=== PATIENT | female | born 1980 | race Caucasian/White ===

== ENCOUNTER 2018-09-27 12:55 | Emergency (ER) | payer OTHER ==
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
[2018-09-27 13:16] VITALS: TEMP 100.8; O2SAT 97
--- NOTE | 2018-09-27 13:43 | RAD ---
EXAM DESCRIPTION: Shoulder,Right 2 or More Views CLINICAL HISTORY: injury COMPARISON: None Available. TECHNIQUE: Two views of the right shoulder. FINDINGS: There is good internal and external rotation. There is no fracture or bone lesion. There are no significant degenerative changes observed. IMPRESSION: 1. Normal shoulder. Electronically signed by: Billy Bal MD 09/27/2018 1:42 PM [facility]
[2018-09-27 14:01] VITALS: BP 183/91
== END 2018-09-27 13:52 | disposition home or self-care (01) ==
LOC: ER 12:55
DX: S40.011A Contusion of right shoulder, initial encounter (principal); I10 Essential (primary) hypertension; F32.9 Major depressive disorder, single episode, unspecified; Z87.891 Personal history of nicotine dependence; Z88.2 Allergy status to sulfonamides; Z88.0 Allergy status to penicillin; Z79.899 Other long term (current) drug therapy; V48.3XXA Unspecified car occupant injured in noncollision transport accident in nontraffic accident, initial encounter; Y92.410 Unspecified street and highway as the place of occurrence of the external cause

== ENCOUNTER 2018-09-30 09:34 | Emergency (ER) | payer OTHER ==
[2018-09-30] MEDS ORDERED: ONDANSETRON INJ 4 MG/2 ML VIAL IV ONE (09:50)
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
[2018-09-30 10:10] VITALS: TEMP 98.8
[2018-09-30] MEDS ORDERED: HYDROcodone 7.5MG/APAP 325MG 1 EA TAB PO ONE (10:22)
[2018-09-30] MEDS ORDERED: CYCLOBENZAPRINE HCL 10 MG TAB PO ONE (10:23)
[2018-09-30] MEDS ORDERED: PROMETHAZINE HCL INJ 25 MG in SODIUM CHLORIDE 0.9% 50ML 50 ML IVPB ONE (11:10)
[2018-09-30] MEDS ORDERED: PROMETHAZINE HCL INJ 25 MG/ML VIAL ONE (11:11)
[2018-09-30] MEDS ORDERED: SODIUM CHLORIDE 0.9% 50ML 50 ML ONE (11:11)
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
[2018-09-30 12:56] VITALS: BP 146/88; O2SAT 98
== END 2018-09-30 12:50 | disposition home or self-care (01) ==
LOC: ER 09:34
DX: S06.0X0A Concussion without loss of consciousness, initial encounter (principal); M54.2 Cervicalgia; I10 Essential (primary) hypertension; F32.9 Major depressive disorder, single episode, unspecified; Y92.69 Other specified industrial and construction area as the place of occurrence of the external cause; Y99.0 Civilian activity done for income or pay; Z87.891 Personal history of nicotine dependence; V49.69XA Unspecified car occupant injured in collision with other motor vehicles in traffic accident, initial encounter; Z79.899 Other long term (current) drug therapy; Z88.0 Allergy status to penicillin; Z88.2 Allergy status to sulfonamides
CPT/HCPCS: 36415; 70450; 72125; 80053; 81001; 81025; 85025; 85610; 85730; A4216; J2405; J2550

== ENCOUNTER → 2018-10-24 | Outpatient (CLI) | payer BC | LOC: LAB.O 11:25 | PROVIDERS: ATTEND Family Medicine | DX: I10 Essential (primary) hypertension (principal); R63.5 Abnormal weight gain; F17.200 Nicotine dependence, unspecified, uncomplicated ==

== ENCOUNTER 2019-04-16 12:33 | Emergency (ER) | payer BC ==
[2019-04-16] MEDS ORDERED: PROMETHAZINE HCL INJ 25 MG in SODIUM CHLORIDE 0.9% 50ML 50 ML IVPB ONE (12:39)
[2019-04-16] MEDS ORDERED: SUCRALFATE 1 GM/10 ML 1 GM UD PO ONE ×2 (12:39→14:57)
[2019-04-16] MEDS ORDERED: ALUM & MAG HYDROX-SIMETHICONE 30 ML, LIDOCAINE VISCOUS 2% 15 ML PO ONE ×4 (12:39→14:57)
[2019-04-16] MEDS ORDERED: SODIUM CHLORIDE 0.9% 1000ML 1,000 ML IVS ONE (12:39)
[2019-04-16] MEDS ORDERED: ALUM & MAG HYDROX-SIMETHICONE 30 ML UD ONE ×2 (12:40→15:15)
[2019-04-16] MEDS ORDERED: LIDOCAINE HCL 2% (MOUTH-THROAT) 15 ML UD ONE ×2 (12:40→15:15)
[2019-04-16] MEDS ORDERED: PROMETHAZINE HCL INJ 25 MG/ML VIAL ONE (12:41)
[2019-04-16] MEDS ORDERED: SODIUM CHLORIDE 0.9% 50ML 50 ML ONE (12:41)
--- NOTE | 2019-04-16 13:30 | RAD ---
1 radiograph chest. 1 Radiographs of the Abdomen. Indication: epigastric and ruq pain with nv today Comparison: None. Impression: Heart size normal. Lungs clear. No free air. Mild constipation without findings of obstruction. No abnormal calcifications. No acute osseous abnormality. Electronically signed by: Carlos Garcia MD 04/16/2019 1:28 PM CDT
[2019-04-16] MEDS ORDERED: HYDROmorphone HCL INJ 2 MG/ML VIAL IV ONE (13:49)
[2019-04-16] MEDS ORDERED: PANTOPRAZOLE SODIUM IV 40 MG VIAL IV ONE (13:49)
--- NOTE | 2019-04-16 15:15 | US ---
EXAM DESCRIPTION: Abdomen,Limited: ULTRASOUND. CLINICAL HISTORY: NV. RUQ discomfort COMPARISON: None. TECHNIQUE: Transabdominal scanning: bailey-scale and Doppler modes. FINDINGS: Gallbladder: normal size, shape, echogenicity; no intraluminal stones or sludge. No fluid around the gallbladder. No wall thickening. 2.4 mm. Non-tender with transducer pressure. Common bile duct: caliber 3.6 mm within normal limits. Liver: normal echogenicity; contour liver capsule smooth where seen. No fluid around the liver. Intrahepatic biliary ducts normal caliber. Doppler hepatopedal flow and normal caliber portal vein.. Long axis right lobe 18.8 cm. Pancreas: normal size and echogenicity. Duct not seen. Proximal abdominal aorta: diameter. IVC: visualized and normal caliber. Right kidney: long axis measures 10.5 cm. Normal Echogenicity. Normal cortical thickness. No hydronephrosis, echogenic stones, or perirenal fluid IMPRESSION: Normal ultrasound of the right upper quadrant of the abdomen. Electronically signed by: Niall Rincon MD 04/16/2019 3:13 PM CDT
--- NOTE | 2019-04-16 15:55 | ED.PDOC ---
History of Present Illness - General Chief Complaint: Abdominal Pain Time Seen by Provider: 04/16/19 12:39 Source: patient Exam Limitations: no limitations - History of Present Illness Initial Comments: the patient is a 38-year-old female presenting to the emergency room secondary to abdominal pain with associated nausea and vomiting. She's had a decreased appetite. no fevers. No bile. No blood. No diarrhea or constipation. The patient had 2 doses of Zofran before coming in and was still throwing up. Abdominal pain is primarily epigastric and maybe a little more to the right than Center. No palpable mass. No definite rebound. the patient has a history of gastritis and reflux in the past. No significant weight loss. No recent scopes. She takes Zantac on an as-needed basis. Timing/Duration: 24 hours Severity: moderate Improving Factors: nothing Worsening Factors: eating Associated Symptoms: loss of appetite, malaise, nausea/vomiting Allergies/Adverse Reactions: Allergies Penicillins Allergy (Verified 09/27/18 13:08) Sulfa Antibiotics Allergy (Verified 09/27/18 13:08) Home Medications: Ambulatory Orders Estradiol [Estrace] 0.5 mg PO DAILY 09/27/18 Amphetamine-Dextroamphetamine [Adderall] 1 tab PO DAILY PRN 04/16/19 Fluoxetine HCl 40 mg PO DAILY 04/16/19 Lisinopril [Prinivil] 10 mg PO DAILY 04/16/19 Omeprazole 40 mg PO BID #60 cap 04/16/19 Ondansetron [Ondansetron Odt] 4 mg PO Q8HR PRN #5 tab 04/16/19 Sucralfate Tab [Carafate Tab] 1 gm PO QID #120 tab 04/16/19 Tramadol HCl 50 mg PO Q8HR PRN #20 tab 04/16/19 Review of Systems - Review of Systems Constitutional: States: malaise EENTM: States: no symptoms reported Respiratory: States: no symptoms reported Cardiology: States: no symptoms reported Gastrointestinal/Abdominal: States: abdominal pain, nausea, vomiting. Denies: constipation, diarrhea Genitourinary: States: no symptoms reported Musculoskeletal: States: no symptoms reported Skin: States: no symptoms reported Neurological: States: no symptoms reported Endocrine: States: no symptoms reported All other Systems: No Change from Baseline Past Medical History (General) - Patient Medical History Hx Stroke: No Hx Congestive Heart Failure: No Hx Hypertension: Yes Hx Diabetes: No Surgical History: Hysterectomy - Vaccination History Hx Influenza Vaccination: Yes - Social History Hx Tobacco Use: Yes Hx Depression: Yes Family Medical History - Family History Mother Family History: Unknown Living Status: Unknown Physical Exam - Physical Exam General Appearance: Alert, Comfortable, No apparent distress Eye Exam: bilateral normal Ears, Nose, Throat: hearing grossly normal Neck: full range of motion Respiratory: no respiratory distress, no accessory muscle use Cardiovascular/Chest: normal peripheral pulses, no edema Peripheral Pulses: radial,right: 2+, radial,left: 2+ Gastrointestinal/Abdominal: soft, other - epigastric discomfort to palpation but no rebound or peritoneal signs. No palpable mass. 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, alert, normal mood/affect, oriented x 3 Skin Exam: normal color Comments: Vital Signs - 24 hr 04/16/19 04/16/19 04/16/19 12:40 13:26 14:05 Temperature 97.2 F L Pulse Rate [ 69 69 75 right brachial] Respiratory 22 20 20 Rate Blood Pressure 165/107 150/112 140/103 [right brachial ] O2 Sat by Pulse 98 99 96 Oximetry 04/16/19 15:24 Temperature Pulse Rate [ 67 right brachial] Respiratory 16 Rate Blood Pressure 154/93 [right brachial ] O2 Sat by Pulse 94 L Oximetry Progress - Progress Progress: 04/16/19 15:57 the patient's a 38-year-old female presenting to emergency room secondary to epigastric pain with associated nausea and vomiting. Laboratory work is reassuring. X-ray and right upper quadrant ultrasound are also reassuring. Most likely source for the discomfort and symptoms is gastritis or duodenitis. The patient is going to be placed on Carafate and omeprazole for the next month. She needs to maintain a bland diet. She also needs to pick up operator liquid Maalox or Mylanta to take as needed for symptom flares. She'll be written for Zofran ODT's as well to controll nausea or vomiting. If symptoms fail to improve or worsen then she may require additional workup. If symptoms recur then testing for Helicobacter pylori as an outpatient, for endoscopy may be warranted. ER warnings were given. Keep routine follow-up with primary care doctor. - Results/Orders Results/Orders: acute abdominal series shows no obvious perforation. No obstruction. No obvious lung disease. Right upper quadrant ultrasound shows no acute gallbladder or kidney pathology. Laboratory Results - last 24 hr 04/16/19 04/16/19 04/16/19 12:53 12:53 12:53 WBC 8.1 RBC 4.28 Hgb 12.6 Hct 37.6 MCV 87.8 MCH 29.4 MCHC 33.5 RDW 13.9 Plt Count 275 MPV 7.4 Absolute Neuts (auto) 6.90 H Absolute Lymphs (auto) 0.90 L Absolute Monos (auto) 0.30 Absolute Eos (auto) 0.00 Absolute Basos (auto) 0.10 Neutrophils % 84.4 H Lymphocytes % 11.3 L Monocytes % 3.4 Eosinophils % 0.3 L Basophils % 0.6 Sodium 138 Potassium 3.9 Chloride 106 Carbon Dioxide 22 Anion Gap 13.9 BUN 12 Creatinine 0.69 BUN/Creatinine Ratio 17.4 Random Glucose 108 H Serum Osmolality 276.0 Lactic Acid 0.6 Calcium 8.8 Magnesium 2.2 Total Bilirubin 0.6 AST 21 ALT 24 Alkaline Phosphatase 67 Creatine Kinase 93 CK-MB (CK-2) 1.7 Troponin I < 0.02 Serum Total Protein 7.4 Albumin 4.4 Globulin 3.0 Albumin/Globulin Ratio 1.5 Amylase 79 Lipase 38 Urine HCG, Qual 04/16/19 15:35 WBC RBC Hgb Hct MCV MCH MCHC RDW Plt Count MPV Absolute Neuts (auto) Absolute Lymphs (auto) Absolute Monos (auto) Absolute Eos (auto) Absolute Basos (auto) Neutrophils % Lymphocytes % Monocytes % Eosinophils % Basophils % Sodium Potassium Chloride Carbon Dioxide Anion Gap BUN Creatinine BUN/Creatinine Ratio Random Glucose Serum Osmolality Lactic Acid Calcium Magnesium Total Bilirubin AST ALT Alkaline Phosphatase Creatine Kinase CK-MB (CK-2) Troponin I Serum Total Protein Albumin Globulin Albumin/Globulin Ratio Amylase Lipase Urine HCG, Qual Negative Departure - Departure Clinical Impression: Gastritis Qualifiers: Gastritis type: unspecified gastritis Chronicity: acute Gastritis bleeding: without bleeding Qualified Code(s): K29.00 - Acute gastritis without bleeding Disposition: Discharge to Home or Self Care Condition: Fair Departure Forms: ED Discharge - Pt. Copy, Patient Portal Self Enrollment Instructions: Gastritis (DC) Diet: bland diet Activity: increase activity as tolerated Prescriptions: Ondansetron [Ondansetron Odt] 4 mg PO Q8HR PRN #5 tab PRN Reason: Nausea/Vomiting Tramadol HCl 50 mg PO Q8HR PRN #20 tab PRN Reason: Moderate Pain Omeprazole 40 mg PO BID #60 cap Sucralfate Tab [Carafate Tab] 1 gm PO QID #120 tab Home Medications: Ambulatory Orders Estradiol [Estrace] 0.5 mg PO DAILY 09/27/18 Amphetamine-Dextroamphetamine [Adderall] 1 tab PO DAILY PRN 04/16/19 Fluoxetine HCl 40 mg PO DAILY 04/16/19 Lisinopril [Prinivil] 10 mg PO DAILY 04/16/19 Omeprazole 40 mg PO BID #60 cap 04/16/19 Ondansetron [Ondansetron Odt] 4 mg PO Q8HR PRN #5 tab 04/16/19 Sucralfate Tab [Carafate Tab] 1 gm PO QID #120 tab 04/16/19 Tramadol HCl 50 mg PO Q8HR PRN #20 tab 04/16/19 Additional Instructions: the patient's a 38-year-old female presenting to emergency room secondary to epigastric pain with associated nausea and vomiting. Laboratory work is reassuring. X-ray and right upper quadrant ultrasound are also reassuring. Most likely source for the discomfort and symptoms is gastritis or duodenitis. The patient is going to be placed on Carafate and omeprazole for the next month. She needs to maintain a bland diet. She also needs to pick up operator liquid Maalox or Mylanta to take as needed for symptom flares. She'll be written for Zofran ODT's as well to controll nausea or vomiting. If symptoms fail to improve or worsen then she may require additional workup. If symptoms recur then testing for Helicobacter pylori as an outpatient, for endoscopy may be warranted. ER warnings were given. Keep routine follow-up with primary care doctor.
[2019-04-16 16:38] VITALS: BP 169/106; TEMP 97.4; O2SAT 93
== END 2019-04-16 16:27 | disposition home or self-care (01) ==
LOC: ER 12:33
DX: K29.00 Acute gastritis without bleeding (principal); F32.9 Major depressive disorder, single episode, unspecified; I10 Essential (primary) hypertension; Z87.891 Personal history of nicotine dependence; Z79.899 Other long term (current) drug therapy; Z88.0 Allergy status to penicillin; Z88.2 Allergy status to sulfonamides
CPT/HCPCS: 36415; 74019; 76775; 80053; 81001; 81025; 82150; 82550; 82553; 83605; 83690; 83735; 84484; 85025; 87040; A4216; J1170; J2550; J7030

== ENCOUNTER → 2019-05-28 | Outpatient (CLI) | payer BC | LOC: MAMMO 13:35 | PROVIDERS: ATTEND Family Medicine | DX: Z12.31 Encounter for screening mammogram for malignant neoplasm of breast (principal) ==

== ENCOUNTER → 2019-06-18 | Outpatient (CLI) | payer BC ==
--- NOTE | 2019-06-19 16:28 | MAM ---
EXAM DESCRIPTION: Breast,Bilateral (accession [id number]), 3D Diagnostic, Bilateral (accession [id number]): Ultrasound CLINICAL HISTORY: 38 yearsFemaleABNORMAL MAMMO focal asymmetry bilateral breasts. No personal history of breast cancer. Remote family history of breast cancer. Menarche age 11. Childbirth age 17. Postmenopausal 10 years. Currently on HRT Lifetime risk of developing breast cancer (Tyrer-Cuzick model)(%): 7.3. COMPARISON: Bilateral screening digital breast tomosynthesis 05/28/2019. TECHNIQUE: Bilateral LM projection full-field images, digital mammographic tomosynthesis technique. Bilateral 2-D digital full-field images. CC and LM projections. CAD not available . Transcutaneous scanning of the bilateral breasts. utilizing bailey-scale and Doppler modes. Scanning performed by the mitering machine operator and Dr. Rincon. FINDINGS: The breast parenchymal density pattern is: Scattered areas of fibroglandular density. No skin thickening or nipple retraction bilateral regions of focal asymmetry are less focal on the current study compared to the screening study. Ultrasound: Scanning of the upper-outer quadrant left breast. History of fibroglandular and fatty echotextures. At the 3:00 position 3 cm from the nipple is a hypoechoic to anechoic object with minimal wall thickening. This is associated with fibroglandular tissues. Mostly posterior acoustic enhancement. 6.9 x 6.0 mm, wider than tall, and not vascular. Slightly closer to the nipple is a anechoic structure with thin simmons, posterior acoustic enhancement and wider than tall orientation measuring 4.5 x 3.0 mm and most likely a cyst. No dominant solid mass, large calcifications, or parenchymal edema. No overlying skin changes. Scanning of the lateral right breast. Emphasis on the 9:00 location 7 cm from the nipple. Mixture of fibroglandular and fatty echotextures. No dominant solid mass or distinct cyst. No large calcifications or parenchymal edema. No overlying skin changes. IMPRESSION: Probably benign complicated cyst versus fibroadenoma left breast. BI-RADS CATEGORY: 3 - PROBABLY BENIGN. Management: Short interval (6-month) follow-up diagnostic digital mammography left breast and directed left breast ultrasound. The FINDINGS and the FOLLOW-UP plan were reviewed in person with the patient after the examination. Written communication explaining the IMPRESSION and FOLLOW-UP will be mailed to the patient and referring care provider. Electronically signed by: Niall Rincon MD 06/19/2019 3:31 PM CDT
--- NOTE | 2019-06-19 16:30 | MAM ---
EXAM DESCRIPTION: Breast,Bilateral (accession [id number]), 3D Diagnostic, Bilateral (accession [id number]): Ultrasound CLINICAL HISTORY: 38 yearsFemaleABNORMAL MAMMO focal asymmetry bilateral breasts. No personal history of breast cancer. Remote family history of breast cancer. Menarche age 11. Childbirth age 17. Postmenopausal 10 years. Currently on HRT Lifetime risk of developing breast cancer (Tyrer-Cuzick model)(%): 7.3. COMPARISON: Bilateral screening digital breast tomosynthesis 05/28/2019. TECHNIQUE: Bilateral LM projection full-field images, digital mammographic tomosynthesis technique. Bilateral 2-D digital full-field images. CC and LM projections. CAD not available . Transcutaneous scanning of the bilateral breasts. utilizing bailey-scale and Doppler modes. Scanning performed by the feed house supervisor and Dr. Rincon. FINDINGS: The breast parenchymal density pattern is: Scattered areas of fibroglandular density. No skin thickening or nipple retraction bilateral regions of focal asymmetry are less focal on the current study compared to the screening study. Ultrasound: Scanning of the upper-outer quadrant left breast. History of fibroglandular and fatty echotextures. At the 3:00 position 3 cm from the nipple is a hypoechoic to anechoic object with minimal wall thickening. This is associated with fibroglandular tissues. Mostly posterior acoustic enhancement. 6.9 x 6.0 mm, wider than tall, and not vascular. Slightly closer to the nipple is a anechoic structure with thin simmons, posterior acoustic enhancement and wider than tall orientation measuring 4.5 x 3.0 mm and most likely a cyst. No dominant solid mass, large calcifications, or parenchymal edema. No overlying skin changes. Scanning of the lateral right breast. Emphasis on the 9:00 location 7 cm from the nipple. Mixture of fibroglandular and fatty echotextures. No dominant solid mass or distinct cyst. No large calcifications or parenchymal edema. No overlying skin changes. IMPRESSION: Probably benign complicated cyst versus fibroadenoma left breast. BI-RADS CATEGORY: 3 - PROBABLY BENIGN. Management: Short interval (6-month) follow-up diagnostic digital mammography left breast and directed left breast ultrasound. The FINDINGS and the FOLLOW-UP plan were reviewed in person with the patient after the examination. Written communication explaining the IMPRESSION and FOLLOW-UP will be mailed to the patient and referring care provider. Electronically signed by: Niall Rincon MD 06/19/2019 3:31 PM CDT
== END ==
LOC: US 09:19
PROVIDERS: ATTEND Family Medicine
DX: R92.8 Other abnormal and inconclusive findings on diagnostic imaging of breast (principal)
CPT/HCPCS: 76641; 77066; G0279

== ENCOUNTER 2020-06-07 04:39 | Emergency (ER) | payer BC ==
[2020-06-07] MEDS ORDERED: SODIUM CHLORIDE 0.9% 1000ML 1,000 ML IVS ONE ×2 (04:42→05:41)
[2020-06-07] MEDS ORDERED: ONDANSETRON INJ 4 MG/2 ML VIAL IV ONE (04:43)
[2020-06-07] MEDS ORDERED: METOCLOPRAMIDE HCL INJ 10 MG/2 ML VIAL IV ONE (05:41)
--- NOTE | 2020-06-07 06:12 | ED.PDOC ---
History of Present Illness - General Chief Complaint: General Stated Complaint: nausea, sore throat, right ear pain Time Seen by Provider: 06/07/20 05:07 Source: patient, RN notes reviewed, Vital Signs reviewed Exam Limitations: no limitations - History of Present Illness Initial Comments: Patient is a 39-year-old white female who presents with complaints of sore throat, right ear pain, nausea and continues vomiting over the last 24 hours. Symptoms have progressively worsened. Patient denies any vertigo or dizziness. Nothing seems to make the nausea and vomiting better. It is worse when she tries to eat or drink anything. Timing/Duration: 24 hours Severity: severe Improving Factors: nothing Worsening Factors: eating Associated Symptoms: nausea/vomiting Allergies/Adverse Reactions: Allergies Penicillins Allergy (Verified 09/27/18 13:08) Sulfa Antibiotics Allergy (Verified 09/27/18 13:08) Home Medications: Ambulatory Orders Estradiol [Estrace] 0.5 mg PO DAILY 09/27/18 Amphetamine-Dextroamphetamine [Adderall] 1 tab PO DAILY PRN 04/16/19 Fluoxetine HCl 40 mg PO DAILY 04/16/19 Lisinopril [Prinivil] 10 mg PO DAILY 04/16/19 Omeprazole 40 mg PO BID #60 cap 04/16/19 Ondansetron [Ondansetron Odt] 4 mg PO Q8HR PRN #5 tab 04/16/19 Sucralfate Tab [Carafate Tab] 1 gm PO QID #120 tab 04/16/19 Tramadol HCl 50 mg PO Q8HR PRN #20 tab 04/16/19 Metoclopramide HCl [Reglan] 10 mg PO Q6H #12 tab 06/07/20 Review of Systems - Review of Systems Constitutional: States: see HPI, chills, malaise. Denies: fever, weakness EENTM: States: see HPI, ear pain, throat pain. Denies: eye pain, blurred vision, double vision, ear discharge, nose pain, nose congestion, throat swelling, mouth pain, mouth swelling Respiratory: States: no symptoms reported. Denies: cough, short of breath, stridor, wheezing Cardiology: States: no symptoms reported. Denies: chest pain, palpitations, syncope Gastrointestinal/Abdominal: States: see HPI, nausea, vomiting. Denies: abdominal pain, diarrhea Genitourinary: States: no symptoms reported. Denies: dysuria, frequency Musculoskeletal: States: no symptoms reported. Denies: back pain, joint pain, neck pain Skin: States: no symptoms reported. Denies: change in color, rash Neurological: States: weakness. Denies: headache, tingling, tremors Endocrine: States: no symptoms reported Hematologic/Lymphatic: States: no symptoms reported All other Systems: No Change from Baseline Past Medical History (General) - Patient Medical History Hx Seizures: No Hx Stroke: No Hx Dementia: No Hx Asthma: No Hx of COPD: No Hx Cardiac Disorders: No Hx Congestive Heart Failure: No Hx Pacemaker: No Hx Hypertension: Yes Hx Thyroid Disease: No Hx Diabetes: No Hx Gastroesophageal Reflux: No Hx Renal Disease: No Hx Cancer: No Hx of HIV: No Hx Hepatitis C: No Hx MRSA: No Surgical History: Hysterectomy - Vaccination History Hx Tetanus, Diphtheria Vaccination: Yes Hx Influenza Vaccination: Yes Hx Pneumococcal Vaccination: No Immunizations Up to Date: No - Social History Hx Tobacco Use: Yes Hx Chewing Tobacco Use: No Hx Alcohol Use: No Hx Substance Use: No Hx Substance Use Treatment: No Hx Depression: No Feels Threatened In Home Enviroment: No Feels Threatened In a Relationship: No Hx Physical Abuse: No Hx Emotional Abuse: No Hx Suspected Abuse: No - Activities of Daily Living Hospice Agency (if applicable):: None - Female History Patient is a Female of Child Bearing Age (10 -59 yrs old): Yes - had a hyst Patient : No Family Medical History - Family History Mother Family History: Unknown Living Status: Unknown Physical Exam - Physical Exam General Appearance: Alert, Anxious, Obvious distress, Well Developed, Well Groomed, Well Nourished Eye Exam: bilateral normal Ears, Nose, Throat: hearing grossly normal, pharyngeal erythema, tonsillar swelling - right Neck: non-tender, full range of motion, supple Respiratory: chest non-tender, lungs clear, normal breath sounds, no respiratory distress, no accessory muscle use Cardiovascular/Chest: normal peripheral pulses, no edema, no gallop, no murmur, tachycardia Peripheral Pulses: radial,right: 2+, radial,left: 2+ Gastrointestinal/Abdominal: normal bowel sounds, non tender, soft Back Exam: normal inspection, no CVA tenderness, no vertebral tenderness Extremity: normal range of motion, non-tender, normal inspection Neurologic: linen room attendant II-XII nml as tested, no motor/sensory deficits, alert, normal mood/affect, oriented x 3 Skin Exam: normal color, warm/dry Lymphatic: other - mild right sided submandibular lymphadenopathy. Progress - Progress Progress: 06/07/20 06:16 Differential diagnosis: Flu, strep, COVID, viral URI among others. 06/07/20 06:47 Patient's vomiting has resolved with the Reglan. She is feeling much better. Patient states that she does not need to urinate yet. She states she is feeling better after all the IV fluids. Plan on discharge home with follow-up with PCP. Her COVID swab is still pending and she will call back for results later. I will discharge patient home with a prescription for Reglan. Patient voices understanding and agreement with the plan of care. Jeremie Rivera M.D. #[id number] - Results/Orders Results/Orders: 06/07/20 04:44 STREP A SCREEN CULTURE Stat 06/07/20 05:50 URINALYSIS Stat 06/07/20 06:32 RESPIRATORY PANEL 2 Stat Laboratory Results - last 24 hr 06/07/20 06/07/20 06/07/20 04:44 04:50 04:50 WBC 5.8 RBC 4.92 Hgb 14.4 Hct 41.6 MCV 84.6 MCH 29.3 MCHC 34.7 RDW 13.6 Plt Count 294 MPV 6.7 L Absolute Neuts (auto) 3.80 Absolute Lymphs (auto) 1.20 Absolute Monos (auto) 0.70 Absolute Eos (auto) 0.10 Absolute Basos (auto) 0.10 Neutrophils % 64.7 Lymphocytes % 21.2 Monocytes % 11.8 H Eosinophils % 1.3 Basophils % 1.0 Sodium 137 Potassium 4.1 Chloride 99 L Carbon Dioxide 24 Anion Gap 18.1 H BUN 12 Creatinine 0.85 BUN/Creatinine Ratio 14.1 Random Glucose 117 H Serum Osmolality 274.6 L Lactic Acid Calcium 9.7 Total Bilirubin 0.3 AST 24 ALT 25 Alkaline Phosphatase 80 Serum Total Protein 8.0 Albumin 4.7 Globulin 3.3 Albumin/Globulin Ratio 1.4 Group A Strep Rapid Negative 06/07/20 04:50 WBC RBC Hgb Hct MCV MCH MCHC RDW Plt Count MPV Absolute Neuts (auto) Absolute Lymphs (auto) Absolute Monos (auto) Absolute Eos (auto) Absolute Basos (auto) Neutrophils % Lymphocytes % Monocytes % Eosinophils % Basophils % Sodium Potassium Chloride Carbon Dioxide Anion Gap BUN Creatinine BUN/Creatinine Ratio Random Glucose Serum Osmolality Lactic Acid 1.2 Calcium Total Bilirubin AST ALT Alkaline Phosphatase Serum Total Protein Albumin Globulin Albumin/Globulin Ratio Group A Strep Rapid Departure - Departure Clinical Impression: Dehydration Nausea and vomiting Qualifiers: Vomiting type: unspecified Vomiting Intractability: non-intractable Qualified Code(s): R11.2 - Nausea with vomiting, unspecified Gastritis Qualifiers: Gastritis type: unspecified gastritis Chronicity: acute Gastritis bleeding: without bleeding Qualified Code(s): K29.00 - Acute gastritis without bleeding Time of Disposition: 06:49 Disposition: Discharge to Home or Self Care Condition: Good Departure Forms: ED Discharge - Pt. Copy, Patient Portal Self Enrollment Instructions: Dehydration, Adult (DC), Nausea and Vomiting, Adult (DC) Diet: full liquid diet Activity: increase activity as tolerated Referrals: Chilo Rodriguez MD [Primary Care Provider] - 1-5 Days Prescriptions: Metoclopramide HCl [Reglan] 10 mg PO Q6H #12 tab Home Medications: Ambulatory Orders Estradiol [Estrace] 0.5 mg PO DAILY 09/27/18 Amphetamine-Dextroamphetamine [Adderall] 1 tab PO DAILY PRN 04/16/19 Fluoxetine HCl 40 mg PO DAILY 04/16/19 Lisinopril [Prinivil] 10 mg PO DAILY 04/16/19 Omeprazole 40 mg PO BID #60 cap 04/16/19 Ondansetron [Ondansetron Odt] 4 mg PO Q8HR PRN #5 tab 04/16/19 Sucralfate Tab [Carafate Tab] 1 gm PO QID #120 tab 04/16/19 Tramadol HCl 50 mg PO Q8HR PRN #20 tab 04/16/19 Metoclopramide HCl [Reglan] 10 mg PO Q6H #12 tab 06/07/20
[2020-06-07] MEDS ORDERED: ACETAMINOPHEN 500 MG TAB PO ONE (06:17)
[2020-06-07 07:22] VITALS: BP 153/100; TEMP 98.1; O2SAT 97
== END 2020-06-07 07:12 | disposition home or self-care (01) ==
LOC: ER 04:39
DX: K29.00 Acute gastritis without bleeding (principal); E86.0 Dehydration; J02.9 Acute pharyngitis, unspecified; H92.01 Otalgia, right ear; I10 Essential (primary) hypertension; Z87.891 Personal history of nicotine dependence; Z79.899 Other long term (current) drug therapy; Z20.828 Contact with and (suspected) exposure to other viral communicable diseases; Z88.0 Allergy status to penicillin; Z88.2 Allergy status to sulfonamides
CPT/HCPCS: 80053; 83605; 85025; 87070; 87635; 87880; J2405; J2765; J7030